=== PATIENT | female | born 1960 | race Caucasian/White ===

== ENCOUNTER → 2016-12-10 | Outpatient (CLI) | payer OTHER ==
[~2016-12-10] MED LIST: ASPI1TAB69 PO; LEVO.05 PO; NOVOLOGP2 SQ; OXYC1TAB63 PO; PLAQ200T PO; PRIS50TA PO; ROSU20 PO; TOPR25TA PO; ZETI10TA5 PO; [UNRECOGNIZED DRUG - CODE] PO
[2016-12-10 10:57] LABS: APTT (PATIENT) 26.1 SEC (24.3-30.1); PROTHROMBIN TIME - PATIENT 10.7 SEC (9.8-11.6)
--- NOTE | 2016-12-10 12:12 | RADRPT ---
EXAM DATE/TIME: 12/10/2016 11:54 [facility] COMPARISON: No previous studies available for comparison. INDICATIONS : Evaluate for pneumothorax, pneumonia and communicable diseases. Pre-op hysterectomy MEDICAL HISTORY : None. SURGICAL HISTORY : Breast biopsy. ENCOUNTER: Initial ACUITY: 1 day PAIN SCORE: 0/10 LOCATION: chest FINDINGS: PA and lateral views of the chest demonstrate the lungs to be symmetrically aerated without evidence of mass, infiltrate or effusion. The cardiomediastinal contours are unremarkable. Osseous structure s are intact. CONCLUSION: No acute disease. Heath Pitts MD FACR on December 10, 2016 at 12:10 Board Certified Radiologist. This report was verified electronically.
--- NOTE | 2016-12-14 10:31 | EKG ---
Date Performed: 12/10/2016 Time Performed: 11:33:52 PTAGE: 56 years EKG: SINUS BRADYCARDIA BORDERLINE ECG NO PREVIOUS TRACING DOCTOR: Eri De La Rosa Interpretating Date/Time 12/14/2016 10:26:21
== END ==
LOC: CPRE 10:14
PROVIDERS: ATTEND Obstetrics & Gynecology Gynecologic Oncology
DX: Z01.812 Encounter for preprocedural laboratory examination (principal); Z01.810 Encounter for preprocedural cardiovascular examination; C54.1 Malignant neoplasm of endometrium; R94.31 Abnormal electrocardiogram [ECG] [EKG]
CPT/HCPCS: 36415; 71020; 85610; 85730; 93005

== ENCOUNTER 2016-12-23 05:20 | Observation (INO) | payer OTHER ==
[~2016-12-23] VITALS: Ht 156.2 cm; Wt 74.2 kg
[~2016-12-23 05:20] MED LIST changes: -OXYC1TAB63 PO
[2016-12-23] MEDS ORDERED: SODIUM CHLORID 0.9% 500 ML IV PRN (05:45)
[2016-12-23] MEDS ORDERED: INSULIN HUMAN REGULAR 1,000 UNITS/10 ML VIAL SQ PRN (05:45)
[2016-12-23] MEDS ORDERED: POVIDONE IODINE 5% (ANTISEPSIS KIT) 4 APPLICATIONS EACH NARE PRN (05:45)
[2016-12-23] MEDS ORDERED: METOPROLOL TARTRATE 25 MG TAB PO PRN (05:45)
[2016-12-23] MEDS ORDERED: CHLORHEXIDINE GLUCONATE 2 % 1 PACK (2 CLOTHS) TOPICAL PRN (05:45)
[2016-12-23] MEDS ORDERED: LACTATED RINGER'S 1000 ML IV PRN (05:45)
[2016-12-23 06:21] VITALS: BP 141/65; PULSE 67; RESP 20; TEMP 97.6; O2SAT 98
[2016-12-23] MEDS ORDERED: metroNIDAZOLE 500 MG INJ 100 ML IV ONE (06:46)
[2016-12-23] MEDS ORDERED: HEPARIN SODIUM - SQ 10,000 UNITS/ML VIAL ONE (06:46)
[2016-12-23] MEDS ORDERED: LEVOFLOXACIN 500 MG PREMIX INJ 100 ML IV ONE (06:47)
[2016-12-23] MEDS ORDERED: METRONIDAZOLE 500 MG/100 ML ISONTONIC SOLN IV SCH (07:00)
[2016-12-23] MEDS ORDERED: LEVOFLOXACIN 500 MG PREMIX INJ 100 ML IV SCH (07:00)
[2016-12-23] MEDS ORDERED: HEPARIN SODIUM - SQ 10,000 UNITS/ML VIAL SQ SCH (07:00)
[2016-12-23] MEDS ORDERED: APREPITANT 40 MG CAP ONE (07:16)
[2016-12-23] MEDS ORDERED: MIDAZOLAM HCL 2 MG/2 ML VIAL ONE (07:18)
[2016-12-23] MEDS ORDERED: LIDOCAINE 1%/EPINEPHrine 1:100,000 SOLN 50 ML VIAL INFIL ONE (08:20)
[2016-12-23] MEDS ORDERED: BACITRACIN TOP OINT 15 GM TUBE TOPICAL ONE ×2 (10:21→10:22)
[2016-12-23] MEDS ORDERED: ACETAMINOPHEN 1000 MG/100 ML VIAL IV ONE (10:23)
[2016-12-23] MEDS ORDERED: DO NOT ADM ANY ANTICOAGULANT DRUGS PRN (10:57)
[2016-12-23] MEDS ORDERED: *diphenhydrAMINE HCL 50 MG/ML VIAL PERIprocedural Use ONLY ONE (11:09)
[2016-12-23] MEDS ORDERED: PROCHLORPERAZINE INJ 10 MG/2 ML VIAL ONE (11:09)
[2016-12-23] MEDS ORDERED: fentaNYL CITRATE 250 MCG/5 ML AMP ONE (11:13)
[2016-12-23] MEDS ORDERED: SODIUM CHLORIDE 0.9% FLUSH 10 ML FLUSH IV FLUSH PRN (11:15)
[2016-12-23] MEDS ORDERED: oxyCODONE/ACETAMINOPHEN 5 MG/325 MG TAB PO PRN (11:15)
[2016-12-23] MEDS ORDERED: diphenhydrAMINE HCL 25 MG CAP PO PRN (11:15)
[2016-12-23] MEDS ORDERED: LORazepam 0.5 MG TAB PO PRN (11:15)
[2016-12-23] MEDS ORDERED: ePHEDrine/NS 25 MG/5 ML SYR IV ONE (12:00)
[2016-12-23] MEDS: D5-1/2 NS + KCL 20 MEQ INJ 1,000 ML IV SCH (12:00)
[2016-12-23] MEDS ORDERED: NORMOSOL R INJ 3,000 ML IV ONE (12:00)
[2016-12-23] MEDS ORDERED: ONDANSETRON HCL 4 MG/2 ML VIAL IV PUSH ONE (12:00)
[2016-12-23] MEDS ORDERED: PROPOFOL 200 MG/20 ML AMP IV ONE (12:00)
[2016-12-23] MEDS ORDERED: diphenhydrAMINE HCL 50 MG/ML VIAL IV ONE (13:00)
[2016-12-23] MEDS ORDERED: PROCHLORPERAZINE INJ 10 MG/2 ML VIAL IV ONE (13:00)
[2016-12-23] MEDS: KETOROLAC TROMETHAMINE 30 MG/ML (IVP) VIAL IVP SCH ×2 (14:20→19:00)
--- NOTE | 2016-12-23 15:32 | PD.ONC.PN ---
Subjective Subjective Remarks post op note pt resting in bed with family at bedside no complaints, pain controlled no nausea or vomiting pt still sleepy Objective Data Date Time Temp Pulse Resp B/P Pulse Ox O2 Delivery O2 Flow Rate FiO2 12/23/16 10:55 97.5 83 20 113/49 98 Nasal Cannula 3 12/23/16 06:21 97.6 67 20 141/65 98 12/23/16 12/23/16 12/23/16 07:00 15:00 23:00 Intake Total 3000 ml Output Total 300 ml Balance 2700 ml Laboratory Results Laboratory Tests Test 12/23/16 12/23/16 06:40 09:08 Blood Type B POSITIVE Antibody Screen NEGATIVE Blood Bank Comment Fasting Glucose 147 MG/DL Administered Medications Medications (Trade) Dose Ordered Sig/Anne Route PRN Reason Start Time Stop Time Status Last Admin Dose Admin Potassium Chloride/Dextrose/ Sod Cl (D5-1/2 NS + KCl 20 Meq Inj) 1,000 ml @ 75 mls/hr [id number] IV 12/23/16 11:04 12/23/16 12:00 Ketorolac Tromethamine (Toradol Inj) 30 mg Q6H IVP 12/23/16 13:00 12/24/16 07:01 12/23/16 14:20 Objective Remarks GENERAL: Well-nourished, well-developed patient. SKIN: Warm and dry. HEAD: Normocephalic. EYES: No scleral icterus. No injection or drainage. CARDIOVASCULAR: Regular rate and rhythm without murmurs. RESPIRATORY: Breath sounds equal bilaterally. No accessory muscle use. GASTROINTESTINAL: SS are c/d/i EXTREMITIES: teds and scds MUSCULOSKELETAL: Adequate muscle tone. NEUROLOGICAL: No obvious focal deficit. sleepy PSYCHIATRIC: Appropriate mood and affect; insight and judgment normal. Assessment/Plan Problem List: (1) Endometrial cancer Status: Acute Plan: s/p RA lap hyst with BSO pathology pending (2) Post-operative state Status: Acute Plan: post op orders in chart pain meds per EMR juliane GRAMAJO OOB to chair pt with insulin pump IS to bedside anticipate D/C home tomorrow Attending Statement Dr. Lew is in agreement. Eder Hi Dec 23, 2016 15:32
[2016-12-23 16:00] VITALS: BP 118/56; PULSE 78; RESP 16; TEMP 97.9; O2SAT 98
[2016-12-23] MEDS: oxyCODONE/ACETAMINOPHEN 5 MG/325 MG TAB PO PRN ×2 (16:26→16:41)
[2016-12-23] MEDS: ONDANSETRON HCL 4 MG/2 ML VIAL IVP PRN (16:40)
[2016-12-23 20:00] VITALS: BP 112/49; PULSE 90; RESP 17; TEMP 97; O2SAT 98
[2016-12-23] MEDS: SODIUM CHLORIDE 0.9% FLUSH 10 ML FLUSH IV FLUSH SCH (21:00)
[2016-12-23] MEDS ORDERED: ATORVASTATIN 40 MG TAB PO SCH (21:00)
[2016-12-23] MEDS ORDERED: EZETIMIBE 10 MG TAB PO SCH (21:00)
[2016-12-24] VITALS: BP 93/50; PULSE 82; RESP 16; TEMP 97.4; O2SAT 82; O2SAT 99
[2016-12-24] MEDS: KETOROLAC TROMETHAMINE 30 MG/ML (IVP) VIAL IVP SCH ×2 (00:33→05:04)
[2016-12-24] MEDS: D5-1/2 NS + KCL 20 MEQ INJ 1,000 ML IV SCH (00:33)
[2016-12-24 04:00] VITALS: BP_SYST 11; BP_SYST 110; BP_DIAS 110; BP_DIAS 75; PULSE 80; RESP 18; TEMP 96.9; O2SAT 93
[2016-12-24] MEDS ORDERED: LEVOTHYROXINE SODIUM 50 MCG TAB PO SCH (06:00)
[2016-12-24] MEDS: ONDANSETRON HCL 4 MG/2 ML VIAL IVP PRN (06:47)
[2016-12-24] MEDS ORDERED: OXYC1TAB63 PO (07:46)
[2016-12-24 08:22] VITALS: BP 119/58; PULSE 76; RESP 20; TEMP 97.8; O2SAT 99
[2016-12-24] MEDS: SODIUM CHLORIDE 0.9% FLUSH 10 ML FLUSH IV FLUSH SCH (08:31)
[2016-12-24] MEDS ORDERED: METOPROLOL SUCCINATE 25 MG EXTENDED RELEASE TAB PO SCH (09:00)
[2016-12-24] MEDS ORDERED: LISINOPRIL 10 MG TAB PO SCH (09:00)
[2016-12-24] MEDS ORDERED: PRISTIQ 50 MG PO SCH (09:00)
[2016-12-24 11:28] LABS: AUTOMATED NEUTROPHIL # 5.8 TH/MM3 (1.8-7.7); BASOPHIL # 0.1 TH/MM3 (0-0.2); BASOPHIL % 1.2 % (0.0-2.0); EOSINOPHIL % 0.3 % (0.0-4.0); HEMATOCRIT 33.6 % (35.0-46.0); HEMO FLAGS DIFF FINAL; LYMPH % 8.2 % (9.0-44.0); LYMPHOCYTE # 0.6 TH/MM3 (1.0-4.8); MEAN CELL VOLUME 89.7 FL (80.0-100.0); MEAN CORPUSCULAR HEMOGLOBIN 30.5 PG (27.0-34.0); MONO % 5.8 % (0.0-8.0); NEUT % 84.5 % (16.0-70.0); PLATELET COUNT 147 TH/MM3 (150-450); RED BLOOD COUNT 3.74 MIL/MM3 (4.00-5.30); RED CELL DISTRIBUTION WIDTH 13.4 % (11.6-17.2); WHITE BLOOD COUNT 6.8 TH/MM3 (4.0-11.0)
[2016-12-24 12:00] VITALS: BP 132/61; PULSE 75; RESP 14; TEMP 97.8; O2SAT 97
--- NOTE | 2016-12-26 13:57 | MD ---
cc: MADHURI LOZANO M.D., MICHAEL D. MD MOLPUS,CONSTANCE ROCK,KANE ENGLE,GARETH Reveles MD ADMISSION DATE: 12/23/2016 DISCHARGE DATE: 12/24/2016 PROCEDURE PERFORMED: 12/23/2016: Robotic-assisted laparoscopic hysterectomy, bilateral salpingo-oophorectomy, resection of broad ligament, leiomyoma. DIAGNOSIS: Endometrial cancer. HOSPITAL COURSE: She did well during the first 24 hours postop. She did have some right shoulder discomfort thought due to referred pain from laparoscopic CO2 gas and possibly some irritation from surgical positioning but with no neurovascular compromise. She has some ecchymosis in the site left around her arterial line, but neurovascularly intact. Pain from surgery is well-controlled. She is hemodynamically stable. OBJECTIVE: Labs this morning are pending. Fasting glucose is 147. In's and outs are 4143/1050. PHYSICAL EXAMINATION: VITAL SIGNS: She is afebrile, pulse ranged from 78 to 90, respirations 16 to 19, blood pressure 93-118/75. 02 saturations while awake greater than or equal to 98%. GENERAL: Alert and oriented times three and in no acute distress. LUNGS: Clear except for mild basilar rales. CARDIOVASCULAR: Regular rate and rhythm. ABDOMEN: Clean and dry soft abdomen. Appropriate tenderness. EXTREMITIES: Range of motion intact at the shoulder. Hand with superficial ecchymosis and mild edema. Neurovascularly intact. Extremities nontender. ASSESSMENT: Postop day #1. Findings at surgery reviewed. Activity restrictions again discussed. Preliminary pathology covered. Questions were answered. She expressed good understanding. She is tolerating oral intake. Chirinos catheter removed pending voiding. PLAN: Anticipate discharge to home. Office number was made available. She is to contact our office to schedule follow up in two weeks. She is to resume her prior medications. She will have a prescription for Percocet for pain. She is to contact our office between now and the time of scheduled follow up should she have any questions or problems. MD DENNYS Larsen/MCKAY /7:51 AM /1:52 PM
--- NOTE | 2016-12-27 06:26 | MP ---
cc: MADHURI LOZANO M.D., KELLY L. MD KOHEN,GARETH WADE MD, MD DATE OF PROCEDURE 12/23/2016 PREOPERATIVE DIAGNOSIS Endometrial adenocarcinoma. POSTOPERATIVE DIAGNOSES Endometrial adenocarcinoma. Right broad ligament leiomyoma. PROCEDURE Robotic-assisted laparoscopic hysterectomy, bilateral salpingo-oophorectomy and resection of right broad ligament leiomyoma. SURGEON Bekah Lew MD DIRECTOR OF HEAD START [place] cafe assistant. ANESTHESIA General endotracheal anesthesia ESTIMATED BLOOD LOSS 100 cc IV FLUIDS 3000 cc URINE OUTPUT 200 cc HISTORY This is a 56-year-old female with postmenopausal bleeding, thickened endometrial stripe. Biopsy showed an endometrioid adenocarcinoma with some squamous cell differentiation. She was counseled regarding these findings and presents now for surgical management. Imaging showed no overt evidence of metastatic disease. FINDINGS The uterine cavity sounded to 7.5 cm. The uterus grossly appeared normal except that there was in the right broad ligament a mass that had the gross appearance of a leiomyoma. It seemed to have a very narrow stalk arising from the lower uterine segment on the right such that it may have been a pedunculated leiomyoma from the uterus extending into the right broad ligament. The ovaries grossly appeared normal, appeared to be status post prior tubal ligation. Visual and palpable inspection of the pelvic and para-aortic lymph nodes revealed no overt adenopathy. The peritoneal surfaces were smooth. There were no peritoneal implants. The liver diaphragm edges were smooth. The omentum grossly appeared normal. The large and small bowel and adjacent mesentery appeared normal without peritoneal implants. Frozen section evaluation of the uterus once removed showed the tumor to be approximately 3.5 cm in greatest diameter. It focally invaded to at or just beyond 50% of the depth of the myometrium. There was no endocervical extension. She was taken to the operating room, placed in dorsal lithotomy position. After general endotracheal anesthesia was administered, time-out was undertaken. The patient was identified by sight recognition and hospital ID bracelet and the proposed procedure was reviewed and confirmed. She was carefully positioned in padded Hermann stirrups. Her arms were padded and secured to her side. She was further secured to the operating table with eggcrate padding and tape in across chest, over the shoulder fashion. All sites were noted be properly aligned with no malalignments or pressure points. She was prepped in sterile fashion, draped below the waist, placed in high lithotomy position. The cervix was grasped, the uterine cavity was sounded and a small V-Care manipulator was inserted and secured in the usual fashion, the Chirinos catheter placed in the bladder. She was returned to low-lithotomy position. A change of sterile gloves was undertaken. We completed draping in anticipation of laparoscopy, confirmed that an orogastric suction tube was in the stomach on suction. With manual elevation of the abdominal wall and direct laparoscopic visualization, a 5-mm cannula was placed in the left upper abdomen in an atraumatic fashion. Carbon dioxide gas was insufflated. Under laparoscopic visualization, a 12-mm cannula was placed in the midline above the umbilicus, an 8-mm cannulas was placed in the right upper quadrant, left lateral quadrant. The original 5 was exchanged for an 8-mm cannula. She was placed in steep Trendelenburg position. Peritoneal washings were obtained for cytology. The anatomy was surveyed with findings as described above. The small bowel was folded back on its mesenteric root and three Ray-Ruby sponges were placed around the root of the small bowel mesentery. The robotic system was brought into the operative field, attached in the usual fashion. Monopolar scissors, fenestrated bipolar forceps and ProGrasp manipulators were placed in arms #1, 2 and 3 respectively and I took my place at the surgeon's console. The right round ligament was cauterized and transected. The anterior and posterior leaves of the broad ligament were opened. The right ureter was identified. The right infundibulopelvic ligament was isolated to the level of the pelvic brim where it was cauterized and transected. The posterior peritoneum was opened along the right side of the uterus and cervix and the right vesicouterine peritoneum was dissected off the lower uterine segment and cervix. The right uterine vessels were skeletonized and cauterized. Attention was directed toward the left side. The left round ligament was isolated, cauterized and transected. The anterior and posterior leaves of the broad ligament were opened. The left ureter was identified. The left infundibulopelvic ligament was isolated. The intervening peritoneum was opened. The infundibulopelvic ligament was cauterized at the level of the pelvic brim and transected. The posterior peritoneum was opened along the left side of the uterus and cervix and the left vesicouterine peritoneum dissected off the lower uterine segment and cervix. The left uterine vessels were skeletonized, cauterized and transected as were the cardinal, paracervical and uterosacral ligaments. Attention was then redirected toward the right side where the uterine vessels were transected. Sharp dissection was used to dissect the leiomyoma with surrounding attached tissue in the broad ligament. This was dissected circumferentially, able to be elevated and tracked back to the uterus where it seemed to be attached to the uterus on a narrow stalk as a pedunculated leiomyoma arising from the uterus. Now the uterine vessels had been completely transected as the cardinal, paracervical and uterosacral ligaments were now isolated, cauterized and transected in a stepwise fashion. Colpotomy was performed the cervix from the upper vagina. The specimen was withdrawn transvaginally which included uterus, the cervix, bilateral tubes and ovaries and the attached pedunculated leiomyoma. A pneumooccluder balloon was placed in the vagina to maintain pneumoperitoneum. Instruments 1 and 3 were exchanged for needle drivers as 0 Vicryl suture was introduced. The vaginal cuff was closed with 0 Vicryl suture starting at the left corner where full-thickness closure including the edge of the uterosacral ligament, posterior peritoneum were tied via instrument tie. The closure was held on countertraction as a running full-thickness continuous closure was carried across the vaginal apex to the contralateral corner where it was similarly fixed, secured and tied via instrument tie. The needle was cut and removed. Small bleeders were rendered hemostatic with bipolar cautery and the integrity the bladder was confirmed. There was a good margin between the edge of the bladder and the vaginal cuff suture line, good peristalsis of ureters bilaterally, good hemostasis. Preliminary pathology came back with findings as described above and, as per our preoperative discussion, our efforts were to focus on removing the central tumor and minimizing morbidity and minimizing time under anesthesia given her complex medical and cardiac history. The lymph node beds were again dissected, the anatomy was again reviewed. There were no lymph nodes that were enlarged, no obvious tumor beyond the uterus and as per our previously agreed upon objectives, lymph node dissection in the search for microscopic disease would be avoided in an effort to try to reduce morbidity and accordingly it was felt that all reasonable surgical objectives in this individual had been completed. Robotic instruments were removed from the operative field. The robotic system was disengaged. I reentered the bedside under sterile condition. Each of the three Ray-Ruby sponges that had been placed in the peritoneal cavity were now removed through the 12-mm cannula. Each were inspected and noted to be removed in their entirety. The 12-mm fascial defect was closed under direct laparoscopic visualization using 0 Vicryl sutures and a needle pass apparatus. They were tied securely. The fascia was rendered hemostatic and airtight with this closure. The remaining cannulas were withdrawn. Carbon dioxide gas was removed from the peritoneal cavity. 3-0 Vicryl subcutaneous, 3-0 Vicryl subcuticular and Steri-Strips were used to close these incisions. Inspection of the peritoneal cavity revealed there were no remaining foreign objects in the peritoneum and preliminary counts were correct. She was returned to dorsal lithotomy position were pelvic exam confirmed that the vaginal cuff was well supported, hemostatic. There were no remaining foreign objects in the vagina, no vaginal lacerations and final counts were correct. She was returned to dorsal supine position and was pending reversal of anesthesia when I left the operating room to precede her to the Post-Anesthesia Care Unit. MD DENNYS Larsen/AILYN /5:18 AM /6:10 AM
== END 2016-12-24 14:39 | disposition home or self-care (01) ==
LOC: HSDC 05:20 → HSDI 11:08 → HOCB 14:44
PROVIDERS: ADMIT Obstetrics & Gynecology Gynecologic Oncology; ATTEND Obstetrics & Gynecology Gynecologic Oncology
DX: C54.1 Malignant neoplasm of endometrium (principal); D25.9 Leiomyoma of uterus, unspecified; N72 Inflammatory disease of cervix uteri; N87.9 Dysplasia of cervix uteri, unspecified; I25.10 Atherosclerotic heart disease of native coronary artery without angina pectoris; E78.5 Hyperlipidemia, unspecified; E10.42 Type 1 diabetes mellitus with diabetic polyneuropathy; Z95.5 Presence of coronary angioplasty implant and graft; M19.90 Unspecified osteoarthritis, unspecified site; K21.9 Gastro-esophageal reflux disease without esophagitis; Z87.891 Personal history of nicotine dependence; Z96.41 Presence of insulin pump (external) (internal)
CPT/HCPCS: 00840; 58571; 80048; 82947; 82948; 85025; 86850; 86900; 86901; 88309; 88331; 94150; G0378; J0131; J1200; J1644; J1885; J1956; J2250; J2405; J3010; J3480; J7120; J8501; 88307; J0780

== ENCOUNTER 2016-12-26 15:19 | Emergency (ER) | payer OTHER ==
[~2016-12-26] VITALS: Ht 154.9 cm; Wt 80.0 kg
[~2016-12-26 15:19] MED LIST changes: +OXYC1TAB63 PO
[2016-12-26 15:22] VITALS: BP 194/80; PULSE 71; RESP 16; TEMP 97.8; O2SAT 97
[2016-12-26] MEDS ORDERED: SODIUM CHLORIDE 0.9% FLUSH 10 ML FLUSH IVF PRN (16:00)
[2016-12-26 16:10] VITALS: BP 149/67; PULSE 81; RESP 19; O2SAT 99
[2016-12-26 16:57] LABS: AUTOMATED NEUTROPHIL # 3.6 TH/MM3 (1.8-7.7); BASOPHIL % 0.7 % (0.0-2.0); EOSINOPHIL # 0.3 TH/MM3 (0-0.4); EOSINOPHIL % 5.4 % (0.0-4.0); HEMATOCRIT 35.2 % (35.0-46.0); HEMO FLAGS DIFF FINAL; LYMPH % 16.3 % (9.0-44.0); LYMPHOCYTE # 0.8 TH/MM3 (1.0-4.8); MEAN CELL VOLUME 90.3 FL (80.0-100.0); MEAN CORPUSCULAR HEMOGLOBIN 29.7 PG (27.0-34.0); MEAN CORPUSCULAR HGB CONC 32.9 % (32.0-36.0); MONO % 8.3 % (0.0-8.0); NEUT % 69.3 % (16.0-70.0); PLATELET COUNT 160 TH/MM3 (150-450); RED CELL DISTRIBUTION WIDTH 13.6 % (11.6-17.2); WHITE BLOOD COUNT 5.2 TH/MM3 (4.0-11.0)
[2016-12-26 17:03] LABS: BLOOD, URINE SMALL (NEG); COMMENT (UR) CULT NOT INDICATED; CULTURE IF INDICATED CULT NOT INDICATED; GLUCOSE,URINE NEG (NEG); KETONE, URINE NEG (NEG); NITRITE,URINE NEG (NEG); SQUAMOUS EPITHELIAL CELL URINE <1 /hpf (0-5); URINE COLOR COLORLESS (YELLW/STRAW)
[2016-12-26 17:25] LABS: ALKALINE PHOSPHATASE 95 U/L (45-117); ALT (GPT) 63 U/L (10-53); ANION GAP 6 MEQ/L (5-15); AST (GOT) 94 U/L (15-37); BICARBONATE 29.7 MEQ/L (21.0-32.0); BLOOD UREA NITROGEN 9 MG/DL (7-18); CHLORIDE 104 MEQ/L (98-107); GLOMERULAR FILTRATION RATE 60 ML/MIN (>89); POTASSIUM 4.3 MEQ/L (3.5-5.1); SODIUM (NA) 140 MEQ/L (136-145); TOTAL BILIRUBIN ADULT 0.4 MG/DL (0.2-1.0)
--- NOTE | 2016-12-26 17:33 | PD ---
HPI Chief Complaint: Edema Time Seen by Provider: 15:54 Travel History International Travel<30 days: No Contact w/Intl Traveler<30days: No Traveled to known affect area: No History of Present Illness HPI 56-year-old female arrives to the ER due to edema. 3 days prior she underwent a total abdominal hysterectomy performed by Dr. jolley. For the past 24 hours or so she has had edema and apparently involving the upper legs. She believes urinary output is decreased. The daughter is concerned oral hydration is decreased. She has no chest pain or shortness of breath. There is no fever nausea or vomiting. She arrives at the behest of her friend who is a nurse and also in keeping with discharge paperwork forms and recommendations therein. PFSH Past Medical History Anxiety: Yes (takes medication for this it is controlled ) Cancer: Yes (ENDOMETRIAL ) Cardiovascular Problems: Yes (CAD) Coronary Artery Disease: Yes Diabetes: Yes (TYPE I) Patient Takes Glucophage: No Endocrine: Yes Genitourinary: No Hepatitis: No Hiatal Hernia: No Hypertension: Yes Immune Disorder: Yes (LUPUS) Musculoskeletal: Yes (LOW BACK ARTHRITIS) Neurologic: No Psychiatric: Yes (ANXIETY) Reproductive: Yes (OVARIAN, CYST,ENDOMETRIAL) Respiratory: No Thyroid Disease: Yes Influenza Vaccination: Yes Tubal Ligation: Yes Past Surgical History Abdominal Surgery: No AICD: No Cardiac Surgery: No Section: Yes Ear Surgery: No Endocrine Surgery: No Eye Surgery: Yes (LYNN CATARACT) Genitourinary Surgery: No Gynecologic Surgery: Yes (C SECTION, TUBAL) Hysterectomy: Yes Joint Replacement: No Oral Surgery: No Pacemaker: No Thoracic Surgery: Yes (LEFT BREAST BIOPSY) Social History Alcohol Use: No Tobacco Use: No Substance Use: No Allergies-Medications (Allergen,Severity, Reaction): Coded Allergies: Amoxicillin (Verified Allergy, Severe, RASH, 12/26/16) Cipro (Verified Adverse Reaction, Severe, NAUSEA/VOMITING, 12/26/16) Reported Meds & Prescriptions Reported Meds & Active Scripts Active Oxycodone-Acetaminophen 5-325 mg Tab 1 Tab PO Q4H PRN Reported Synthroid (Levothyroxine Sodium) 50 Mcg Tab 50 Mcg PO DAILY Plaquenil (Hydroxychloroquine Sulfate) 200 Mg Tab 200 Mg PO HS Take with food Pristiq 24 HR (Desvenlafaxine ER 24 HR) 50 Mg Tab 50 Mg PO DAILY Crestor (Rosuvastatin Calcium) 20 Mg Tab 20 Mg PO HS Zetia (Ezetimibe) 10 Mg Tab 10 Mg PO HS Toprol XL (Metoprolol Succinate) 25 Mg Tab 25 Mg PO DAILY Novolog Inj (Insulin Aspart) 1,000 Unit/10 Ml Vial 0 SQ PT HAS INSULIN PUMP Sliding Scale as directed. Mavik (Trandolapril) 2 Mg Tab 2 Mg PO DAILY Aspirin 81 Mg Tabdr 81 Mg PO DAILY Review of Systems Except as stated in HPI: all other systems reviewed are Neg General / Constitutional: No: Fever Musculoskeletal: Positive: Edema Physical Exam Narrative GENERAL: 56-year-old female pleasant no acute distress SKIN: Focused skin assessment warm/dry. HEAD: Atraumatic. Normocephalic. EYES: Pupils equal and round. No scleral icterus. No injection or drainage. ENT: No nasal bleeding or discharge. Mucous membranes pink and moist. NECK: Trachea midline. No JVD. CARDIOVASCULAR: Regular rate and rhythm. No murmur appreciated. RESPIRATORY: No accessory muscle use. Clear to auscultation. Breath sounds equal bilaterally. GASTROINTESTINAL: Abdomen soft, non-tender, nondistended. Hepatic and splenic margins not palpable. MUSCULOSKELETAL: No obvious deformities. No clubbing. No cyanosis. Patient has white compression hoses from the toes to the knees. The region of the thighs there is minimal perhaps 1+ pitting edema. NEUROLOGICAL: Awake and alert. No obvious cranial nerve deficits. Motor grossly within normal limits. Normal speech. PSYCHIATRIC: Appropriate mood and affect; insight and judgment normal. Data Data Last Documented VS Vital Signs Date Time Temp Pulse Resp B/P Pulse Ox O2 Delivery O2 Flow Rate FiO2 12/26/16 20:00 70 19 168/72 98 Room Air 12/26/16 15:22 97.8 Vital signs reviewed Orders Complete Blood Count With Diff (12/26/16 15:56) Comprehensive Metabolic Panel (12/26/16 15:56) B-Type Natriuretic Peptide (12/26/16 15:56) Urinalysis - C+S If Indicated (12/26/16 15:56) Iv Access Insert/Monitor (12/26/16 15:56) Ecg Monitoring (12/26/16 15:56) Oximetry (12/26/16 15:56) Oxygen Administration (12/26/16 15:56) Sodium Chloride 0.9% Flush (Ns Flush) (12/26/16 16:00) Us Leg Venous Doppler Bilat (12/26/16 ) Blood Glucose (12/26/16 18:03) Ondansetron Inj (Zofran Inj) (12/26/16 18:15) Labs Laboratory Tests Test 12/26/16 16:40 White Blood Count 5.2 TH/MM3 Red Blood Count 3.90 MIL/MM3 Hemoglobin 11.6 GM/DL Hematocrit 35.2 % Mean Corpuscular Volume 90.3 FL Mean Corpuscular Hemoglobin 29.7 PG Mean Corpuscular Hemoglobin 32.9 % Concent Red Cell Distribution Width 13.6 % Platelet Count 160 TH/MM3 Mean Platelet Volume 8.7 FL Neutrophils (%) (Auto) 69.3 % Lymphocytes (%) (Auto) 16.3 % Monocytes (%) (Auto) 8.3 % Eosinophils (%) (Auto) 5.4 % Basophils (%) (Auto) 0.7 % Neutrophils # (Auto) 3.6 TH/MM3 Lymphocytes # (Auto) 0.8 TH/MM3 Monocytes # (Auto) 0.4 TH/MM3 Eosinophils # (Auto) 0.3 TH/MM3 Basophils # (Auto) 0.0 TH/MM3 CBC Comment DIFF FINAL Differential Comment Urine Color COLORLESS Urine Turbidity CLEAR Urine pH 7.0 Urine Specific [place] 1.003 Urine Protein NEG mg/dL Urine Glucose (UA) NEG mg/dL Urine Ketones NEG mg/dL Urine Occult Blood SMALL Urine Nitrite NEG Urine Bilirubin NEG Urine Urobilinogen LESS THAN 2.0 MG/DL Urine Leukocyte Esterase NEG Urine RBC 3 /hpf Urine WBC 2 /hpf Urine Squamous Epithelial <1 /hpf Cells Microscopic Urinalysis Comment CULT NOT INDICATED Sodium Level 140 MEQ/L Potassium Level 4.3 MEQ/L Chloride Level 104 MEQ/L Carbon Dioxide Level 29.7 MEQ/L Anion Gap 6 MEQ/L Blood Urea Nitrogen 9 MG/DL Creatinine 0.96 MG/DL Estimat Glomerular Filtration 60 ML/MIN Rate Random Glucose 138 MG/DL Calcium Level 9.0 MG/DL Total Bilirubin 0.4 MG/DL Aspartate Amino Transf 94 U/L (AST/SGOT) Alanine Aminotransferase 63 U/L (ALT/SGPT) Alkaline Phosphatase 95 U/L B-Type Natriuretic Peptide 108 PG/ML Total Protein 6.5 GM/DL Albumin 3.3 GM/DL MDM Medical Decision Making Medical Screen Exam Complete: Yes Emergency Medical Condition: Yes Differential Diagnosis CHF, volume overload, renal disease/failure, DVT, anemia, hypoalbuminemia Narrative Course CBC & BMP Diagram 12/26/16 16:40 AST 94 ALT 64 Albumin 3.3 Urinalysis: no UTI BNP 108 LE Doppler pending at time of dictation. Pt can go home if normal. F/u Dr Lew. Diagnosis Primary Impression: Edema Qualified Code: R60.9 - Edema, unspecified type Referrals: Bekah Lew MD 2 days Additional Instructions: You have a choice when it comes to health care, and we are glad that you chose [facility]. Hopefully, we have met your expectations on today's visit. You are welcome to return to [facility] at any time, as we are committed to meeting the health care needs of our community. Med/Other Pt SpecificInfo: No Change to Meds Disposition: 01 DISCHARGE HOME Condition: Stable Hesham Khan MD Dec 26, 2016 17:33
[2016-12-26 18:09] VITALS: BP 208/93; PULSE 75; RESP 17; O2SAT 100
[2016-12-26] MEDS ORDERED: ONDANSETRON HCL 4 MG/2 ML VIAL IV PUSH ONE (18:15)
[2016-12-26 18:44] VITALS: BP 172/75; PULSE 65; RESP 12; O2SAT 100
--- NOTE | 2016-12-26 19:33 | RADRPT ---
EXAM DATE/TIME: 12/26/2016 18:01 [facility] COMPARISON: No previous studies available for comparison. INDICATIONS : Bilateral leg swelling. MEDICAL HISTORY : Hypertension. Thyroid disease. Coronary artery disease. Ovarian cyst. Diabetes type 1. Diabetic ret inopathy. Arthritis. Anxiety. Lupus. Endometrial cancer. SURGICAL HISTORY : Hysterectomy. section. Tubal ligation.Bilateral cataract removal. Bilateral carpal tunnel rep air. Left breast biopsy. ENCOUNTER: Initial ACUITY: 2 day PAIN SCORE: 0/10 LOCATION: Bilateral legs. TECHNIQUE: Venous ultrasound of the left and right leg was performed from the inguinal ligament to the proximal calf. Real-time, color Doppler and spectral tracing, compression and augmentation techniques were us ed. FINDINGS: RIGHT LEG: There is normal compressibility of the deep venous system from the inguinal region to the proximal ca lf. No echogenic clot is seen in the lumen of the common femoral, femoral, popliteal, and posterior tibial veins. There is a normal response of the venous system to proximal and distal augmentation an d respiration. LEFT LEG: There is normal compressibility of the deep venous system from the inguinal region to the proximal ca lf. No echogenic clot is seen in the lumen of the common femoral, femoral, popliteal, and posterior tibial veins. There is a normal response of the venous system to proximal and distal augmentation an d respiration. CONCLUSION: Normal examination. Yeison Bedoya MD on December 26, 2016 at 19:31 Board Certified Radiologist. This report was verified electronically.
[2016-12-26 20:00] VITALS: BP 168/72; PULSE 70; RESP 19; O2SAT 98
== END 2016-12-26 20:42 | disposition home or self-care (01) ==
LOC: NEPC 15:19
DX: R60.0 Localized edema (principal); F41.9 Anxiety disorder, unspecified; I25.10 Atherosclerotic heart disease of native coronary artery without angina pectoris; Z79.4 Long term (current) use of insulin; I10 Essential (primary) hypertension
CPT/HCPCS: 80053; 81001; 83880; 85025; 93970; 96374; 99285; J2405